=== PATIENT | female | born 1980 | race Caucasian/White ===

== ENCOUNTER → 2025-05-10 | Emergency (ER) | payer MEDICAID, OTHER ==
[~2025-05-10] VITALS: Ht 152.4 cm; Wt 88.0 kg
[~2025-05-10] MED LIST: IBUP-1492 PO; IRON18TA PO; METH-659 PO
[2025-05-10 19:39] VITALS: BP 148/86; PULSE 88; RESP 18; TEMP 98.2; O2SAT 98
[2025-05-10] MEDS: HYDROCODONE/ACETAMINOPHEN 5-325 MG TABLET PO ONE (21:37)
== END | disposition still patient (30) ==
LOC: EMS 18:46
DX: S53.401A Unspecified sprain of right elbow, initial encounter (principal); S93.504A Unspecified sprain of right lesser toe(s), initial encounter; E78.00 Pure hypercholesterolemia, unspecified; M25.512 Pain in left shoulder; Z79.899 Other long term (current) drug therapy; Z85.41 Personal history of malignant neoplasm of cervix uteri; V43.62XA Car passenger injured in collision with other type car in traffic accident, initial encounter; Y93.89 Activity, other specified; Y92.410 Unspecified street and highway as the place of occurrence of the external cause; Y99.8 Other external cause status
CPT/HCPCS: 71120; 99284; 73030-TC; 73080-TC; Z7502; Z7610